=== PATIENT | female | born 1995 | race Caucasian/White ===

== ENCOUNTER 2018-03-13 19:46 | Inpatient (IN) | payer OTHER ==
[2018-03-13 20:45] LABS: ABS Basophils 0 10^3/ul (0-0.2); ABS Eosinophils 0.1 10^3/ul (0-0.6); ABS Lymphocytes 1.9 10^3/ul (1.0-4.8); ABS Monocytes 0.5 10^3/ul (0-0.8); ABS Neutrophils 5.6 10^3/ul (1.5-7.7); ABS Nucleated RBC 0 10^3/ul; Eosinophil % 1.5 % (0-6); Hematocrit 42 % (35-47); Hemoglobin 14.2 g/dl (12.0-16.0); Lymphocyte % 23.1 % (25-47); Mean Corpuscular HGB Conc 34 g/dl (31-36); Mean Corpuscular Hemoglobin 32 pg (27-31); Mean Corpuscular Volume 93 fL (80-97); Mean Platelet Volume 8.2 um3 (7.4-10.4); Nucleated Red Blood Cells % 0; Platelet Count 204 10^3/ul (150-450); Red Blood Count 4.48 10^6/ul (4.0-5.4); Red Cell Distribution Width 13 % (10.5-15); White Blood Count 8.2 10^3/ul (3.5-10.8)
[2018-03-13 20:53] LABS: Urine Appearance Clear; Urine Blood Negative (Negative); Urine Color Yellow; Urine Ketones Negative (Negative); Urine Protein Negative (Negative); Urine Specific Gravity 1.025 (1.010-1.030); Urine Urobilinogen Positive (Negative)
[2018-03-14] MEDS ORDERED: Acetaminophen TAB* 325 MG ONE (00:38)
[2018-03-14] MEDS ORDERED: Al Hydrox/Mg Hydrox/Simet LIQ* 30 ML UDC PO PRN (00:48)
[2018-03-14] MEDS ORDERED: Acetaminophen TAB* 325 MG PO PRN (00:48)
[2018-03-14] MEDS ORDERED: Albuterol HFA INHALER* 8 gm MDI INH PRN (00:50)
--- NOTE | 2018-03-14 05:04 | ED ---
Marcio Zavala Jennifer, scribed for Mary Anne Mckeon MD on 03/13/18 at 2048 . Psychiatric Complaint - HPI Summary HPI Summary: The patient is a 23 year old female who presents with worsening depression this past week. The patient states that she switched medications this past summer which has resulted in poor focus. This week, her sadness and focus worsened due to finals, so she stopped taking her medications. The patient denies SI, HI, auditory and visual hallucination. - History Of Current Complaint Chief Complaint: [facility] Time Seen by Provider: 03/13/18 20:25 Hx Obtained From: Patient Onset/Duration: Gradual Onset, Still Present, Worse Since - last week due to finals, Other - Began in middle school Timing: Constant Severity Initially: Moderate Severity Currently: Moderate Character: Depressed Aggravating Factor(s): Nothing Alleviating Factor(s): Nothing Associated Signs And Symptoms: Negative: Hallucinating Has Suicidal: Reports: Thoughts, With A Plan Has Homicidal: Denies: Thoughts, With A Plan - Allergies/Home Medications Allergies/Adverse Reactions: Allergies Allergy/AdvReac Type Severity Reaction Status Date / Time No Known Allergies Allergy Unverified 03/13/18 19:56 PMH/Surg Hx/FS Hx/Imm Hx Endocrine/Hematology History: Denies: Hx Diabetes Cardiovascular History: Denies: Hx Hypertension Psychiatric History: Reports: Hx Depression Infectious Disease History: No Infectious Disease History: Denies: Traveled Outside the [place] in Last 30 Days - Family History Known Family History: Negative: Renal Disease - Social History Occupation: Student Alcohol Use: None Substance Use Type: Reports: None Review of Systems Negative: Fever Positive: Depressed, Other - SI All Other Systems Reviewed And Are Negative: Yes Physical Exam - Summary Physical Exam Summary: GENERAL: ~Patient is a well developed and nourished F who is lying comfortable in the stretcher. ~Patient is not in any acute respiratory distress. HEAD AND FACE: Normocephalic EYES: PERRLA, EOMI x 2. EARS: Hearing grossly intact. MOUTH: Oropharynx within normal limits. NECK: Supple, trachea is midline, no adenopathy, no JVD, no carotid bruit. CHEST: Symmetric, no tenderness at palpation LUNGS: Clear to auscultation bilaterally. No wheezing or crackles. CVS: Regular rate and rhythm, S1 and S2 present, no murmurs or gallops appreciated. ABDOMEN: Soft, non-tender. Bowel sounds are normal. No abdominal abnormal pulsations. EXTREMITIES: Full ROM in all major joints, no edema, no cyanosis or clubbing. NEURO: Alert and oriented x 3. No acute neurological deficits. Speech is normal and follows commands. SKIN: Dry and warm Triage Information Reviewed: Yes Vital Signs On Initial Exam: Initial Vitals Temp Pulse Resp BP Pulse Ox 98.4 F 82 16 125/61 99 03/13/18 19:50 03/13/18 19:50 03/13/18 19:50 03/13/18 19:50 03/13/18 19:50 Vital Signs Reviewed: Yes Diagnostics - Vital Signs Vital Signs Temp Pulse Resp BP Pulse Ox 03/13/18 19:50 98.4 F 82 16 125/61 99 - Laboratory Result Diagrams: 03/13/18 20:36 03/13/18 20:36 Lab Statement: Any lab studies that have been ordered have been reviewed, and results considered in the medical decision making process. Re-Evaluation - Re-Evaluation First Eval Re-Evaluation Time: 22:29 Change: Worse Comment: The patient was walking to [facility] when she disclosed that she has actually been suicidal since high school and is still actively suicidal. She stated, "Once my mom dies, I will kill myself." Course/Dx - Course Course Of Treatment: The patient is a 23 year old female who presents with worsening depression this past week. She states she has been suicidal since high school and is still suicidal. The patient is admitted to Flex unit with diagnosis of unspecified depressive disorder. - Differential Dx/Clinical Impression Provider Diagnosis: Major depressive disorder, recurrent, unspecified Discharge - Sign-Out/Discharge Documenting (check all that apply): Discharge/Admit/Transfer - Discharge Plan Condition: Fair Disposition: [place]YCHIATRIC FAC[place] [place] Referrals: Glory Sierra MD [Primary Care Provider] - The documentation as recorded by the Marcio li Jennifer accurately reflects the service I personally performed and the decisions made by me, Mary Anne Mckeon MD.
[2018-03-14] MEDS ORDERED: [UNRECOGNIZED DRUG - OTHER] PO SCH (09:00)
[2018-03-14] MEDS: Montelukast Sodium TAB* 10 MG PO SCH (09:34)
[2018-03-14] MEDS: Cetirizine* 10 MG TAB PO SCH (09:34)
[2018-03-14] MEDS: Vitamin THERAPEUTIC TAB PO SCH (09:34)
[2018-03-14] MEDS: buPROPion SR TAB.SR* 100 MG PO SCH (21:37)
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
[2018-03-15] MEDS: Venlafaxine EXT RELEASE CAP* 75 MG PO SCH (09:02)
[2018-03-15] MEDS: buPROPion SR TAB.SR* 100 MG PO SCH ×2 (09:02→21:35)
[2018-03-15] MEDS: Vitamin THERAPEUTIC TAB PO SCH (09:02)
[2018-03-15] MEDS: Cetirizine* 10 MG TAB PO SCH (09:02)
[2018-03-15] MEDS: Montelukast Sodium TAB* 10 MG PO SCH (09:03)
[2018-03-15] MEDS: Omeprazole CAP* 20 MG PO SCH (13:10)
[2018-03-16] MEDS: Omeprazole CAP* 20 MG PO SCH (09:18)
[2018-03-16] MEDS: Venlafaxine EXT RELEASE CAP* 75 MG PO SCH (09:18)
[2018-03-16] MEDS: Cetirizine* 10 MG TAB PO SCH (09:18)
[2018-03-16] MEDS: Montelukast Sodium TAB* 10 MG PO SCH (09:18)
[2018-03-16] MEDS: buPROPion SR TAB.SR* 100 MG PO SCH ×2 (09:18→22:07)
[2018-03-16] MEDS: Vitamin THERAPEUTIC TAB PO SCH (09:18)
[2018-03-16] MEDS: Fluticasone NASAL SPRAY 50MCG* 16 gm SPRAY BTL BOTH NARES PRN (09:19)
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
[2018-03-17] MEDS: Cetirizine* 10 MG TAB PO SCH (09:04)
[2018-03-17] MEDS: Omeprazole CAP* 20 MG PO SCH (09:04)
[2018-03-17] MEDS: Fluticasone NASAL SPRAY 50MCG* 16 gm SPRAY BTL BOTH NARES PRN (09:04)
[2018-03-17] MEDS: buPROPion SR TAB.SR* 100 MG PO SCH ×2 (09:04→21:29)
[2018-03-17] MEDS: Montelukast Sodium TAB* 10 MG PO SCH (09:04)
[2018-03-17] MEDS: Venlafaxine EXT RELEASE CAP* 75 MG PO SCH (09:04)
[2018-03-17] MEDS: Vitamin THERAPEUTIC TAB PO SCH (09:04)
--- NOTE | 2018-03-17 17:21 | PN ---
Subjective - Subjective Date of Service: 03/17/18 Service Type: 91415 Hosp care 25 min moderate complexity Subjective: Rossy is doing well today. No complaints. Tolerating meds well. Has family meeting tomorrow with both parents and doesn't want her father to feel like her issues are his fault. Denies SI. Objective - Appearance Appearance: Well Developed/Nourished Dysmorphic Features: No Hygiene: Normal Grooming: Well Kept - Behavior Psychomotor Activities: Normal Exhibits Abnormal Movement: No - Attitude and Relatedness Attitude and Relatedness: Cooperative Eye Contact: Good - Speech Quality: Unpressured Latencies: Normal Quantity: Appropriate - Mood Patient's Decription of Mood: "Good" - Affect Observed Affect: Good Affect Consistent with: Euthymia - Thought Process Patient's Thought Process: Coherent Thought Content: No Passive Wish, No Suicidal Planning, No Homicidal Ideation, No Paranoid Ideation - Sensorium Experiencing Hallucinations: Yes Type of Hallucinations: Visual: No, Auditory: No, Command: No - Level of Consciousness Level of Consciousness: Alert Orientation: Yes Intact, Yes Orientated to Time, Yes Orientated to Place, Yes Orientated to Person - Impulse Control Impulse Control: Tenuous - Insight and Judgement Insight and Judgement: Fair - Group Participation Particating in Group Activities: Yes - Medication Management Medication Management Adherence: Yes Assessment - Assessment Merits Inpatient Hospitalization: For Immediate Safety, For Stabilization Inpatient DSM-V Dx: F33.2 Clinical Impression: 23 y.o. 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 Plan - Plan Treatment Plan: Name: ROSSY DAVILA Birthdate: 1995 [id number] We have continued bupropion SR 100mg PO BID and replaced escitalopram with venlafaxine XR 75mg PO qam. She is working well on the milieu and seeking discharge on Friday (03/18). Family meeting with parents tomorrow at 11:00. Continued Medication Management: Different Medication Medications: Current Medications Acetaminophen (Tylenol Tab*) 650 mg PO Q4H PRN PRN Reason: PAIN or TEMP > 101 F Al Hydrox/Mg Hydrox/Simethicone (Maalox Plus*) 30 ml PO Q4H PRN PRN Reason: INDIGESTION Last Admin: 03/17/18 17:04 Dose: 30 ml Albuterol (Ventolin Hfa Inhaler*) 2 puff INH Q4H PRN PRN Reason: SHORTNESS OF BREATH Bupropion HCl (Wellbutrin Sr Tab*) 100 mg PO BID [facility] Last Admin: 03/17/18 09:04 Dose: 100 mg Cetirizine HCl (Zyrtec*) 10 mg PO DAILY [facility] Last Admin: 03/17/18 09:04 Dose: 10 mg Fluticasone Propionate (Flonase Nasal [place] 50mcg*) 1 spray BOTH NARES DAILY PRN PRN Reason: ALLERGIES Last Admin: 03/17/18 09:04 Dose: 1 spray Montelukast Sodium (Singulair Tab*) 10 mg PO DAILY [facility] Last Admin: 03/17/18 09:04 Dose: 10 mg Multivitamins (Theragran Tab*) 1 tab PO DAILY [facility] Last Admin: 03/17/18 09:04 Dose: 1 tab Omeprazole (Prilosec Cap*) 20 mg PO DAILY@0600 [facility] Last Admin: 03/17/18 09:04 Dose: 20 mg Venlafaxine HCl (Effexor Xr Cap*) 75 mg PO DAILY [facility] Last Admin: 03/17/18 09:04 Dose: 75 mg - Discharge Plan Discharge Plan: Inpatient Hospitalization
[2018-03-18] MEDS: buPROPion SR TAB.SR* 100 MG PO SCH ×2 (09:07→21:11)
[2018-03-18] MEDS: Fluticasone NASAL SPRAY 50MCG* 16 gm SPRAY BTL BOTH NARES PRN (09:07)
[2018-03-18] MEDS: Venlafaxine EXT RELEASE CAP* 75 MG PO SCH (09:07)
[2018-03-18] MEDS: Cetirizine* 10 MG TAB PO SCH (09:08)
[2018-03-18] MEDS: Omeprazole CAP* 20 MG PO SCH (09:08)
[2018-03-18] MEDS: Vitamin THERAPEUTIC TAB PO SCH (09:08)
[2018-03-18] MEDS: Montelukast Sodium TAB* 10 MG PO SCH (09:08)
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
[2018-03-19 07:42] VITALS: BP 116/70
[2018-03-19] MEDS: Cetirizine* 10 MG TAB PO SCH (09:07)
[2018-03-19] MEDS: Vitamin THERAPEUTIC TAB PO SCH (09:07)
[2018-03-19] MEDS: Venlafaxine EXT RELEASE CAP* 75 MG PO SCH (09:07)
[2018-03-19] MEDS: Fluticasone NASAL SPRAY 50MCG* 16 gm SPRAY BTL BOTH NARES PRN (09:07)
[2018-03-19] MEDS: Omeprazole CAP* 20 MG PO SCH (09:08)
[2018-03-19] MEDS: Montelukast Sodium TAB* 10 MG PO SCH (09:08)
[2018-03-19] MEDS: buPROPion SR TAB.SR* 100 MG PO SCH (09:08)
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
== END 2018-03-19 15:20 | disposition home or self-care (01) | DRG 751 ==
LOC: ED 19:46 → BSU 22:00
PROVIDERS: ADMIT Psychiatry & Neurology Psychiatry; ATTEND Psychiatry & Neurology Psychiatry
DX: F33.2 Major depressive disorder, recurrent severe without psychotic features (principal); R45.851 Suicidal ideations; F12.90 Cannabis use, unspecified, uncomplicated; J30.2 Other seasonal allergic rhinitis; J45.909 Unspecified asthma, uncomplicated; K21.9 Gastro-esophageal reflux disease without esophagitis; Z81.8 Family history of other mental and behavioral disorders; F10.10 Alcohol abuse, uncomplicated; Z91.410 Personal history of adult physical and sexual abuse; Z81.1 Family history of alcohol abuse and dependence; Z73.3 Stress, not elsewhere classified
CPT/HCPCS: 36415; 80053; 80307; 80320; 80329; 81003; 84443; 84702; 85025; 90847; 99222; 99232; 99238; 99285; A9270-GY; G0480